=== PATIENT | female | born 1980 | race Caucasian/White ===

== ENCOUNTER 2024-04-17 17:46 | Emergency (ER) | payer OTHER ==
[2024-04-17 17:59] VITALS: BP 169/99; O2SAT 100
--- NOTE | 2024-04-17 18:13 | ED Physician Documentation ---
PD HPI UPPER EXT INJURY - Stated complaint Stated Complaint: RT ARM PAIN - Chief complaint Chief Complaint: Ext Problem - Additonal information Additional information: 44-year-old female presents emergency department for right arm pain. Patient said that she had a tendon surgery about 2 years ago from [facility] and was cleared to go back to work the following day after surgery and feels like it never fully healed properly. Today patient was lifting a heavy ng and felt a sharp tearing pain in her right elbow region of the lateral aspect of her elbow. She also says the pain radiates to her bicep region. She has not had any medications prior to coming here she also says that she has got some decrease sensation to force her fingers. PD PAST MEDICAL HISTORY - Past Medical History Past Medical History: Yes Respiratory: Asthma - Past Surgical History Past Surgical History: Yes - Present Medications Home Medications: Ambulatory Orders Medication Instructions Recorded Confirmed No Known Home Medications 04/17/24 04/17/24 - Allergies Allergies/Adverse Reactions: Allergies Allergy/AdvReac Type Severity Reaction Status Date / Time aspirin AdvReac Cramps Verified 04/17/24 17:57 - Social History Does the pt smoke?: No Smoking Status: Never smoker Does the pt drink ETOH?: Yes Does the pt have substance abuse?: No - Immunizations Immunizations are current?: Yes - POLST Patient has POLST: No PD ED PE NORMAL - Vitals Vital signs reviewed: Yes - General General: Alert and oriented X 3, No acute distress, Well developed/nourished - Extremities Extremities: Other (RUE: Bicep tenderness with palpation, Tenderness to the lateral aspect of the right elbow able to flex and extend no tenderness to the shoulder or wrist) Results - Vitals Vitals: Vital Signs - 24 hr 04/17/24 17:50 Temperature 36.3 C L Heart Rate 100 Respiratory 19 Rate Blood Pressure 169/99 H O2 Saturation 100 Oxygen O2 Source Room air - Rads (name of study) Right elbow x-rays Relevant Findings:: Final report received, EMP independent interpretation of test, Other (No acute bony abnormalities or findings) PD Medical Decision Making - ED course ED course: 44-year-old female presents emergency department for right elbow pain and tenderness. X-rays are complete for further evaluation she does not have any acute bony abnormalities or findings. There is a possible partial ligament tear to the right elbow to the lateral portion patient was placed in a sling she was given Toradol and Tylenol and says that she has significant improvement of her pain she is told to follow-up with her orthopedic surgeon who did the original surgery couple years ago for further evaluation and more advanced outpatient imaging as needed. Return precautions given patient safe for discharge at this time. LNI paperwork is complete Departure - Departure Disposition: 01 Home, Self Care Clinical Impression: Tendinitis of right elbow Instructions: Biceps Tendonitis Distal, Tendonitis and Tenosynovitis Comments: Thank you for trusting us with your care. We have placed your right elbow in a sling make sure that you are still taking it out periodically and doing some gentle range of motion of the right elbow so that does not lock up. Please follow-up with your surgeon who has completed the original surgery for further evaluation and more imaging. You can alternate between Tylenol and ibuprofen for pain and discomfort apply ice 20 minutes at a time 1 hour off. Forms: PCP List, Activity restrictions Discharge Date/Time: 04/17/24 19:27
[2024-04-17] MEDS: ACETAMINOPHEN 500 MG TABLET PO STA (18:24)
[2024-04-17] MEDS: KETOROLAC 30 MG/ML VIAL IM STA (18:24)
--- NOTE | 2024-04-17 19:05 | XRAY Report ---
PROCEDURE: Elbow 3+V RT INDICATIONS: right elbow pain with ripping sensation TECHNIQUE: 3 views of the elbow were acquired. COMPARISON: None. FINDINGS: Bones: No fractures or dislocations. No suspicious bony lesions. Soft tissues: No effusion. No suspicious soft tissue calcifications or masses. IMPRESSION: No acute elbow fracture or dislocation. No significant joint effusion.. Reviewed by: Ramón Gonzalez MD on 04/17/2024 7:03 PM PDT Approved by: Ramón Gonzalez MD on 04/17/2024 7:03 PM PDT Station ID: [id number]
== END 2024-04-17 19:27 | disposition home or self-care (01) ==
LOC: ED 17:46
DX: M77.11 Lateral epicondylitis, right elbow (principal)
CPT/HCPCS: 1040M; 73080; A9270